=== PATIENT | male | born 1935 ===

== ENCOUNTER 2018-12-09 07:00 | Outpatient (CLI) | payer OTHER | END 2018-12-09 09:00 | disposition home or self-care (01) | LOC: LAB 07:00 → ADM 10:15 → AMB-ENDOS 12-10 07:41 → EDSTATUS 12-10 10:15 | DX: D37.4 Neoplasm of uncertain behavior of colon (principal); R19.4 Change in bowel habit; K92.1 Melena; N40.1 Benign prostatic hyperplasia with lower urinary tract symptoms ==

== ENCOUNTER 2019-09-10 07:56 | Inpatient (IN) | payer OTHER ==
[~2019-09-10] VITALS: Ht 167.6 cm; Wt 49.9 kg
[2019-09-10] MEDS ORDERED: DILANTIN30 MG (08:14)
[2019-09-15] MEDS ORDERED: DILANTIN100 MG PO (15:09)
== END 2019-09-15 20:45 | disposition home or self-care (01) | DRG 330 ==
LOC: ER 07:56 → EDBD 07:58 → SEC-K 10:33 → SURH 10:33
PROVIDERS: ADMIT Surgery
PROC: 0DBN4ZZ Excision of Sigmoid Colon, Percutaneous Endoscopic Approach (ICD-10-PCS; 2019-09-12)
PROC: 07BC4ZX Excision of Pelvis Lymphatic, Percutaneous Endoscopic Approach, Diagnostic (ICD-10-PCS; 2019-09-12)
PROC: 0DJD8ZZ Inspection of Lower Intestinal Tract, Via Natural or Artificial Opening Endoscopic (ICD-10-PCS; 2019-09-12)
PROC: 0DBP4ZZ Excision of Rectum, Percutaneous Endoscopic Approach (ICD-10-PCS; principal; 2019-09-12 07:45)
DX: C20 Malignant neoplasm of rectum (principal); K62.5 Hemorrhage of anus and rectum; G40.802 Other epilepsy, not intractable, without status epilepticus; D64.9 Anemia, unspecified